=== PATIENT | male | born 1980 | race Caucasian/White ===

== ENCOUNTER 2016-10-10 03:44 | Emergency (ER) | payer SELFPAY ==
[~2016-10-10] VITALS: Ht 160 cm; Wt 113.6 kg
[~2016-10-10 03:44] MED LIST changes: -ARIP15TA3 PO; -SERT50TA9 PO
[2016-10-10] MEDS ORDERED: LORazepam 1 MG (ATIVAN) TABLET PO ONE (03:50)
--- NOTE | 2016-10-10 04:00 | NUR ---
Patient denies any tightness to chest at this time.
--- NOTE | 2016-10-10 04:00 | NUR ---
Came back in room to admin. patient Ativan ordered by DR. Mahoney. Patient having trouble keeping his eyes open. I asked patient if he was he was still feeling anxious and he responded, "Some." I asked patient if he wanted to hold off on the ativan and see if he can sleep, I explained that his meds could be starting to take effect and I don't want to give him too much medication. Patient agreed that he would liketo wait and see if he could fall asleep. I told patient to call if he started becoming anxious and felt he needed the ativan. I oriented patient to call light, call light is on the rail fo the bed by his hand. Will cont. to monitor closely.
[2016-10-10] MEDS ORDERED: SERT50TA9 PO (05:08)
[2016-10-10] MEDS ORDERED: ARIP15TA3 PO (05:08)
[2016-10-10 06:03] VITALS: BP 128/87
--- NOTE | 2016-10-10 06:45 | Diagnostic Imaging Report ---
INDICATION: Shortness of breath. Portable chest 4:55 AM. Heart size and pulmonary vascularity are normal. Lungs are clear. There are no effusions or pneumothoraces. IMPRESSION: Negative chest. Dictated by: Dictated on workstation # [id number]
== END 2016-10-10 05:59 | disposition home or self-care (01) ==
LOC: EDUNIT# 03:44 → ED 03:45
DX: F41.1 Generalized anxiety disorder (principal)
CPT/HCPCS: 71010; 99283; 99284

== ENCOUNTER → 2016-10-10 | Outpatient (CLI) | payer SELFPAY ==
[~2016-10-10] MED LIST: ACET1TAB43 PO; ALPR0.25 PO; ARIP15TA3 PO; CEPH-331 PO; CLOT15CR6 TOP; ERYT400T73 PO; HYDR-2013 PO; IBUP-1772 PO; NYST30OI6 TOP; PRED20TA PO; PRX20T PO; SERT50TA9 PO; SULF1TAB35 PO; VILA40TA PO; no medications
== END ==
LOC: EMS 03:33
PROVIDERS: ATTEND Family Medicine
DX: F99 Mental disorder, not otherwise specified (principal); F41.8 Other specified anxiety disorders

== ENCOUNTER 2016-10-17 10:58 | Emergency (ER) | payer SELFPAY ==
[~2016-10-17] VITALS: Ht 167.6 cm; Wt 81.6 kg
[2016-10-17 11:25] LABS: BASOPHILS % (AUTO) 1 % (0-2); EOSINOPHILS # (AUTO) 0.4 10^3uL; EOSINOPHILS % (AUTO) 4 % (0-4); LYMPHOCYTES # (AUTO) 1.5 X10^3; MEAN CORPUSCULAR HEMOGLOBIN 29.7 PG (26.0-34.0); MEAN CORPUSCULAR HGB CONC 34.4 g/dL (31.0-37.0); MEAN CORPUSCULAR VOLUME 86 FL (80-100); MEAN PLATELET VOLUME 9.3 FL (6.0-9.5); MONOCYTES # (AUTO) 1.1 X10^3; MONOCYTES % (AUTO) 13 % (3-11); NEUTROPHILS # (AUTO) 5.3 X10^3; NEUTROPHILS % (AUTO) 63 % (51-67); PLATELET COUNT 245 10^3uL (150-450); WHITE BLOOD COUNT 8.39 10^3uL (4.0-11.0)
[2016-10-17 11:37] LABS: ALBUMIN 4.4 g/dL (3.4-5.0); ALKALINE PHOSPHATASE 86 U/L (38-126); ANION GAP 16.7 MEQ/L (3-15); BUN/CREATININE RATIO 22 (10-20); CREATINE KINASE 81 U/L (55-170); TOTAL PROTEIN 7.8 g/dL (6.4-8.5)
[2016-10-17 12:12] LABS: BILIRUBIN,URINE Negative (Negative); CLARITY,URINE Clear; COLOR,URINE Yellow; GLUCOSE, URINE (UA) Negative (Negative); LEUKOCYTE ESTERASE ,URINE Negative (Negative); PH,URINE 5.5 (5.0 - 8.0); UROBILINOGEN,URINE 0.2 mg/dL (0.2-1.0)
[2016-10-17 12:13] LABS: URINE CENTRIFUGED VOLUME 12 mL
[2016-10-17 12:20] LABS: AMPHETAMINE SCREEN, URINE Negative (Negative); CANNABINOID SCREEN, URINE Negative (Negative); METHAMPHETAMINE SCREEN URINE S NEGATIVE (NEGATIVE); OPIATE SCREEN URINE Negative (Negative); PROPOXYPHENE STAT NEGATIVE (NEGATIVE)
[2016-10-17 12:49] VITALS: BP 120/83
== END 2016-10-17 12:55 | disposition home or self-care (01) ==
LOC: EDUNIT# 10:58 → EDBD 10:58 → ED 11:01
DX: R41.82 Altered mental status, unspecified (principal)
CPT/HCPCS: 36415; 80053; 80307; 80320; 81003; 81015; 82550; 82553; 84484; 85025; 86140; 93005; 93010; 99284; 99285

== ENCOUNTER → 2016-10-17 | Outpatient (CLI) | payer SELFPAY ==
[~2016-10-17] MED LIST changes: +ARIP15TA3 PO; +SERT50TA9 PO
== END ==
LOC: EMS 10:52
PROVIDERS: ATTEND Emergency Medicine
DX: F99 Mental disorder, not otherwise specified (principal)

== ENCOUNTER → 2016-11-02 | Emergency (ER) | payer BC ==
[~2016-11-02] VITALS: Ht 167.6 cm; Wt 104.0 kg
[2016-11-02 08:10] VITALS: BP 138/96
[2016-11-02 08:36] LABS: BILIRUBIN,URINE Negative (Negative); CLARITY,URINE Clear; COLOR,URINE Yellow; GLUCOSE, URINE (UA) Negative (Negative); LEUKOCYTE ESTERASE ,URINE Negative (Negative); PH,URINE 7.5 (5.0 - 8.0); UROBILINOGEN,URINE 0.2 mg/dL (0.2-1.0)
[2016-11-02 08:37] LABS: BASOPHILS % (AUTO) 1 % (0-2); EOSINOPHILS # (AUTO) 0.3 10^3uL; EOSINOPHILS % (AUTO) 3 % (0-4); LYMPHOCYTES # (AUTO) 1.7 X10^3; MEAN CORPUSCULAR HGB CONC 34.4 g/dL (31.0-37.0); MEAN CORPUSCULAR VOLUME 87 FL (80-100); MEAN PLATELET VOLUME 9.6 FL (6.0-9.5); MONOCYTES % (AUTO) 11 % (3-11); NEUTROPHILS # (AUTO) 5.9 X10^3; NEUTROPHILS % (AUTO) 65 % (51-67); PLATELET COUNT 265 10^3uL (150-450); WHITE BLOOD COUNT 9.08 10^3uL (4.0-11.0)
[2016-11-02 08:45] LABS: AMPHETAMINE SCREEN, URINE Negative (Negative); CANNABINOID SCREEN, URINE Negative (Negative); METHAMPHETAMINE SCREEN URINE S NEGATIVE (NEGATIVE); OPIATE SCREEN URINE Negative (Negative); PROPOXYPHENE STAT NEGATIVE (NEGATIVE)
[2016-11-02 08:48] LABS: ALBUMIN 4.2 g/dL (3.4-5.0); ANION GAP 16.4 MEQ/L (3-15); TOTAL PROTEIN 7.7 g/dL (6.4-8.5)
== END | disposition home or self-care (01) ==
LOC: EDUNIT# 08:09 → ED 08:10
DX: R41.82 Altered mental status, unspecified (principal)
CPT/HCPCS: 36415; 51701; 70450; 80053; 80307; 81003; 85025; 99283; 99285

== ENCOUNTER → 2016-11-02 | Outpatient (CLI) | payer BC | LOC: EMS 08:13 | PROVIDERS: ATTEND Emergency Medicine | DX: R41.82 Altered mental status, unspecified (principal) ==

== ENCOUNTER 2016-11-04 16:37 | Outpatient (CLI) | payer BC | END 2016-12-08 12:00 | disposition home or self-care (01) | LOC: RT 16:37 | PROVIDERS: ATTEND Family Medicine | DX: R55 Syncope and collapse (principal); R00.0 Tachycardia, unspecified | CPT/HCPCS: 93270 ==